=== PATIENT | female | born 2005 | race Caucasian/White ===

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

== ENCOUNTER 2024-07-11 03:56 | Emergency (ER) | payer OTHER ==
[~2024-07-11] VITALS: Ht 162.6 cm; Wt 49.9 kg
[2024-07-11] MEDS ORDERED: ACETAMINOPHEN 500 MG TABLET ONE (05:03)
[2024-07-11] MEDS: ACETAMINOPHEN 500 MG TABLET PO ONE (05:04)
[2024-07-11] MEDS ORDERED: NEOM28.43 TP (05:40)
[2024-07-11] MEDS ORDERED: TRIA80OI2 TP (05:40)
[2024-07-11] MEDS ORDERED: NEOMY/BACITRA/POLYMYXIN B OINT UD PACKET TP ONE (05:43)
[2024-07-11 06:00] VITALS: BP 116/55; TEMP 97.8; O2SAT 98
[2024-07-11] MEDS: NEOMY/BACITRA/POLYMYXIN B OINT UD PACKET TP ONE (06:01)
== END 2024-07-11 06:00 | disposition home or self-care (01) ==
LOC: ER 03:56
DX: L03.012 Cellulitis of left finger (principal); M79.645 Pain in left finger(s)
CPT/HCPCS: A4606; A4663; A9150